=== PATIENT | female | born 1970 | race Caucasian/White ===

== ENCOUNTER → 2024-08-19 09:57 | Outpatient (REF) | payer OTHER, SELFPAY | LOC: HWRAD 09:57 | PROVIDERS: ATTENDING PHYSICIAN Nurse Practitioner Adult Health | DX: Z87.891 Personal history of nicotine dependence (principal) | CPT/HCPCS: 71271 ==

== ENCOUNTER → 2024-09-13 12:52 | Outpatient (REF) | payer OTHER, SELFPAY | LOC: HWRAD 12:52 | PROVIDERS: ATTENDING PHYSICIAN Nurse Practitioner Adult Health | DX: Z12.31 Encounter for screening mammogram for malignant neoplasm of breast (principal); R10.2 Pelvic and perineal pain | CPT/HCPCS: 76830; 76856; 77063; 77067 ==

== ENCOUNTER 2025-03-21 06:54 | Emergency (ER) | payer OTHER, SELFPAY ==
[2025-03-21 06:57] VITALS: BP 123/71
[2025-03-21 07:34] LABS: COVID-19 Antigen Negative (Negative)
[2025-03-21 07:45] VITALS: BP 117/67
[2025-03-21 07:46] VITALS: BMI 32.7
--- NOTE | 2025-03-21 07:53 | ED.GENMED ---
History of Present Illness
General
Chief Complaint: Cold/Flu/URI Symptoms
Time Seen by Provider: 03/21/25 07:37
History of Present Illness
History of Present Illness:
54-year-old female presents to the emergency department for evaluation of shortness of breath, fever, chills, and bodyaches ongoing for the past 2 days. Reports chest heaviness without overt chest pain. No nausea vomiting or diarrhea. No history
of underlying lung disease.
Past History
Past History
ED Past Medical History: Other (She does see a psychiatrist for unspecified problems)
ED Past Surgical History: Other (Laparoscopy, sinus surgery, tonsillectomy)
Social History
Tobacco: Non-smoker
Alcohol: None
Personal:
Living: with family
Employment: Not employed
Review of Systems
Review of Systems
Allergies reviewed?: Yes
All Other Systems: ROS reviewed and negative except as documented in HPI and ROS
Phy Exam
Physical Exam
Physical Exam:
GEN: Well appearing, NAD, WDWN
HEENT: Oral mucosa moist, no scleral icterus
Cardiac: Regular rate and rhythm,
Lung: Tachypneic and hypopneic, crackles best heard in the left upper field as well as bibasilar
MSK: No gross deformity or injuries
Skin: Good color, no pallor or jaundice, no rashes
Neuro: AO x3, moves all extremities freely
Psych: Calm, cooperative
Sepsis
Sepsis Screening
Sepsis Assessment: Sepsis Ruled Out
Sepsis Screen
Sepsis Screen: Sepsis Ruled Out
Date: 03/21/25
Time: 10:14
Course
Orders/Labs/Results
Orders:
Orders
03/21/25 07:06
COVID-19 Antigen Urgent
Source: Nasal Swab
INF RAPID [Influenza A+B Rapid Molecular] Urgent
SNEHA Source: Nasal Swab
Specimen Description:
03/21/25 07:52
CR Chest - 2 Views Urgent
Comment:
Reason For Exam: SOB/flu +
03/21/25 08:33
0.9% Sodium Chloride 1000 ml [Nss] 1,000 ml IV BOLUS
Ipratropium/Albuterol Sulfate [Duoneb] 3 ml INH R NOW STA
Oseltamivir Phosphate [Tamiflu] 75 mg PO NOW STA
03/21/25 08:34
Ketorolac [Toradol] 15 mg IV NOW STA
03/21/25 08:52
Complete Blood Count/With Diff Urgent
Comprehensive Metabolic Panel Urgent
03/21/25 09:26
Potassium Chloride [KCl] 40 meq PO NOW STA
Abnormal Lab Results
03/21/25
08:52
Absolute Neuts (auto) 6.8 H 10^3/uL
(1.4-6.5)
Absolute Lymphs (auto) 0.7 L 10^3/uL
(1.2-3.4)
Neutrophils % 84.5 H %
(42.2-75.2)
Lymphocytes % 8.8 L %
(20.5-51.1)
Potassium 3.0 L mmol/L
(3.5-5.1)
AST 69 H U/L
(14-36)
ALT 90 H U/L
(0-35)
Total Protein 5.6 L g/dl
(6.3-8.2)
Albumin 3.4 L g/dl
(3.5-5.0)
03/21/25 08:52
03/21/25 08:52
Vital Signs
Initial and Last Documented VS:
Initial Vital Signs
Temp Pulse Resp BP Pulse Ox
99.2 F 74 22 123/71 95
03/21/25 06:57 03/21/25 06:57 03/21/25 06:57 03/21/25 06:57 03/21/25 06:57
Last Documented Vital Signs
Temp Pulse Resp BP Pulse Ox
98.7 F 77 16 99/67 97
03/21/25 08:26 03/21/25 08:07 03/21/25 08:07 03/21/25 08:07 03/21/25 08:07
MDM/Problems Addressed
MDM/Problems Addressed:
Patient's work of breathing and crackles that improved with IV NSAIDs and nebulizer treatment. Will treat with antivirals given that she is within the 48-hour onset window. Chest x-ray is unrevealing of acute pathology and she is not hypoxic thus
she is suitable for outpatient management
*Pulse Oximetry
SaO2: 96
Oxygen Mode of Delivery: Room air
Patient hypoxic: no
*Critical Care Note
Total Time (30-74mins, 75-104mins- exclusive of procedures): Not Applicable
ED Attending Note
-
Portions of this chart may have been created with voice recognition software.� Occasional wrong word or��sound alike� substitutions may have occurred due to the inherent limitations of voice recognition software.
Discharge Plan
Departure
Patient Disposition: Home (Routine Discharge)
Date of Disposition: 03/21/25
Time of Disposition: 09:25
Patient with high blood pressure during this ER visit?: No
Discharge Problem:
Influenza A
Instructions: Flu in adults - ED (DC)
Prescriptions:
New
oseltamivir [Tamiflu] 75 mg capsule
75 mg PO BID Qty: 10 0RF
No Action
fluoxetine [Prozac] 10 mg Tablet
30 mg PO DAILY
dextroamphetamine-amphetamine [Adderall XR] 20 mg Capsule,Extended Release 24hr
20 mg PO DAILY
Referrals:
UNKNOWN - PT DOES,NOT KNOW [Family Provider]
Interventions
Interventions:
*General Assessment Last Done: 03/21/25 07:00
*Neglect/Abuse Screening Last Done: 03/21/25 07:00
*ED COVID-19 Vaccine History Last Done: 03/21/25 07:48
*ED Influenza Vaccine History Last Done: 03/21/25 07:48
[facility] Fall Risk Assessment Tool Last Done: 03/21/25 07:50
*Risk Screen - Suicide (C-SSRS) Last Done: 03/21/25 07:01
ED- Pulmonary Assessment Last Done: 03/21/25 07:49
Discharge Date and Time
Print Language: ETHIOPIAN
[2025-03-21 08:07] VITALS: BP 99/67
[2025-03-21] MEDS: TAMIFLU 75 MG PO (08:42)
[2025-03-21] MEDS: TORADOL 15 MG IV (08:43)
[2025-03-21] MEDS: NSS 1000 IV (08:45)
[2025-03-21] MEDS: DUONEB 3 ML INH (08:48)
[2025-03-21 08:59] LABS: Hematocrit 37.0 % (37.0-47.0); Hemoglobin 12.6 g/dL (12.0-16.0); Mean Corp Hgb Conc. 34.1 g/dL (33.0-37.0); Mean Corpuscular Volume 87.3 fL (81.0-99.0); Nucleated Red Blood Cells % 0 %; Platelet Count 245 10^3/uL (130-400); Red Cell Dist. Width 13.0 % (11.5-14.5)
[2025-03-21 09:13] LABS: ALT (SGPT) 90 U/L (0-35); AST (SGOT) 69 U/L (14-36); Albumin 3.4 g/dl (3.5-5.0); Alkaline Phosphatase 126 U/L (38-126); Blood Urea Nitrogen 7 mg/dl (7-17); Calcium 8.5 mg/dl (8.4-10.2); Carbon Dioxide 23 mmol/L (22-30); Chloride 104 mmol/L (98-107); Estimated Creatinine Clearance 99 ml/min; Glucose 84 mg/dl (70-99); Potassium 3.0 mmol/L (3.5-5.1); Sodium 135 mmol/L (135-145); Total Protein 5.6 g/dl (6.3-8.2); eGFR > 60.00
[2025-03-21] MEDS: KCL 40 MEQ PO (09:42)
== END 2025-03-21 10:00 | disposition home or self-care (01) ==
LOC: EMR 06:54
PROVIDERS: Emergency Medicine; Physician Assistant; EMERGENCY PHYSICIAN Emergency Medicine
DX: J10.1 Influenza due to other identified influenza virus with other respiratory manifestations (principal)
CPT/HCPCS: 99284; 96374; 96361; 94640; 71046; 80053; 85025; 87502; 87811

== ENCOUNTER 2025-03-24 19:17 | Inpatient (IN) | payer OTHER, SELFPAY ==
[2025-03-24 11:22] VITALS: BP 144/73
[2025-03-24 11:42] LABS: Hematocrit 36.5 % (37.0-47.0); Hemoglobin 12.5 g/dL (12.0-16.0); Mean Corp Hgb Conc. 34.2 g/dL (33.0-37.0); Mean Corpuscular Volume 84.1 fL (81.0-99.0); Nucleated Red Blood Cells % 0 %; Platelet Count 303 10^3/uL (130-400); Red Cell Dist. Width 12.7 % (11.5-14.5)
[2025-03-24 11:54] LABS: ALT (SGPT) 70 U/L (0-35); AST (SGOT) 56 U/L (14-36); Albumin 3.7 g/dl (3.5-5.0); Alkaline Phosphatase 138 U/L (38-126); Blood Urea Nitrogen 7 mg/dl (7-17); Calcium 8.5 mg/dl (8.4-10.2); Carbon Dioxide 26 mmol/L (22-30); Chloride 102 mmol/L (98-107); Glucose 99 mg/dl (70-99); Potassium 3.1 mmol/L (3.5-5.1); Sodium 135 mmol/L (135-145); Total Protein 6.2 g/dl (6.3-8.2); eGFR > 60.00
[2025-03-24 12:32] VITALS: BMI 31.8
--- NOTE | 2025-03-24 13:11 | ED.GENMED ---
History of Present Illness
General
Chief Complaint: Fainting/Passed Out
Time Seen by Provider: 03/24/25 12:39
History of Present Illness
History of Present Illness:
Patient is a 54-year-old woman who is otherwise healthy presenting to the emergency department after syncopal event. Per chart the patient was diagnosed with the flu 3 days ago. Today she was at her primary care doctor as she did not feel well.
They noted her oxygen was 93%. Upon ambulation her oxygen dropped to 89%. Patient felt lightheaded dizzy and then passed out. She slowly went to the ground. She did not hit her head. She is not on any blood thinners. She does note that she is
having tailbone pain after the fall. She also notes that she is having pleuritic chest pain and shortness of breath. She has been trying to stay hydrated though she has no appetite. No nausea vomiting. No diarrhea. She is on day 3 of Tamiflu.
Past History
Past History
ED Past Medical History: Other (She does see a psychiatrist for unspecified problems)
ED Past Surgical History: Other (Laparoscopy, sinus surgery, tonsillectomy)
Social History
Tobacco: Non-smoker
Alcohol: None
Personal:
Living: with family
Employment: Not employed
Phy Exam
Physical Exam
Physical Exam:
GENERAL: in no acute distress
HEENT: normocephalic, extraocular movements intact, dry oral mucosa
NECK: normal inspection
RESPIRATORY: no respiratory distress, crackles at the right lower base with intermittent wheezing
CARDIOVASCULAR: regular rate and rhythm
ABDOMEN/: soft, non-distended, non-tender to palpation, no rebound or guarding
EXTREMITIES: non-tender, no edema/swelling
NEUROLOGIC: awake and alert, moves all extremities
SKIN: warm
Course
Orders/Labs/Results
Orders:
Orders
03/24/25 11:30
Complete Blood Count/With Diff Urgent
Comprehensive Metabolic Panel Urgent
03/24/25 12:39
Electrocardiogram (*1) Urgent
Reason for Study: Shortness of Breath
EKG- Treatment ONCE
03/24/25 12:40
CR Chest - 2 Views Urgent
Comment:
Reason For Exam: cough
03/24/25 13:10
0.9% Sodium Chloride 1000 ml [Nss] 1,000 ml IV BOLUS
Ipratropium/Albuterol Sulfate [Duoneb] 3 ml INH R NOW ONE
03/24/25 13:11
Ketorolac [Toradol] 15 mg IV NOW STA
03/24/25 13:33
D-Dimer Urgent
03/24/25 14:44
CT Chest PE Study Urgent
Reason For Exam: positive dimer
03/24/25 15:06
Azithromycin 500 mg/250 ml [Zithromax Infusion] 500 mg in 250 ml IV NOW
CefTRIAXone [Rocephin] 2,000 mg IV NOW STA
Abnormal Lab Results
03/24/25 03/24/25
11:30 13:33
WBC 12.1 H 10^3/uL
(4.8-10.8)
Hct 36.5 L %
(37.0-47.0)
Abs Immat Gran (auto) 0.1 H 10^3/uL
(0-0.05)
Absolute Neuts (auto) 9.3 H 10^3/uL
(1.4-6.5)
Absolute Monos (auto) 0.9 H 10^3/uL
(0.1-0.6)
Neutrophils % 76.8 H %
(42.2-75.2)
Lymphocytes % 14.1 L %
(20.5-51.1)
D-Dimer 0.74 H ug/mlFEU
(0.00-0.50)
Potassium 3.1 L mmol/L
(3.5-5.1)
Creatinine 0.4 L mg/dL
(0.6-1.0)
AST 56 H U/L
(14-36)
ALT 70 H U/L
(0-35)
Alkaline Phosphatase 138 H U/L
(38-126)
Total Protein 6.2 L g/dl
(6.3-8.2)
03/24/25 11:30
03/24/25 11:30
Vital Signs
Initial and Last Documented VS:
Initial Vital Signs
Temp Pulse Resp BP Pulse Ox
99 F 91 20 144/73 92
03/24/25 11:22 03/24/25 11:22 03/24/25 11:22 03/24/25 11:22 03/24/25 11:22
Last Documented Vital Signs
Temp Pulse Resp BP Pulse Ox
99 F 79 14 144/73 94
03/24/25 11:22 03/24/25 12:45 03/24/25 12:37 03/24/25 11:22 03/24/25 13:14
MDM/Problems Addressed
Differential Diagnosis Includes:
Patient is a 54-year-old woman presenting to the emergency department after syncopal event in the setting of being flu positive. On arrival patient's oxygen saturation is 93 to 94%. Exam does show dry oral mucosa with crackles at the right lower
base with intermittent wheezing. Patient is a smoker but no diagnosis of COPD. Will give her nebulizer treatment. Will obtain chest x-ray to rule out superimposed pneumonia. Will give IV fluids and obtain EKG. Patient will need admission. Also
check a dimer given pleuritic pain and syncopal event with exertion and now SOB.
*Pulse Oximetry
SaO2: 94
Oxygen Mode of Delivery: Room air
Patient hypoxic: no
*Critical Care Note
Total Time (30-74mins, 75-104mins- exclusive of procedures): Not Applicable
Update Note
Update Note:
Chest x-ray per my interpretation consistent with pneumonia. Will give antibiotics. Dimer poisitve. CT PE negative. discussed with hospitalist who accepted patient to their service.
ED Attending Note
-
Portions of this chart may have been created with voice recognition software.� Occasional wrong word or��sound alike� substitutions may have occurred due to the inherent limitations of voice recognition software.
Discharge Plan
Departure
Patient Disposition: Admit
Date of Disposition: 03/24/25
Time of Disposition: 17:57
Presentation/result/management discussed w/ accepting MD/DO: Hospitalist
Discharge Problem:
Pneumonia
Prescriptions:
No Action
fluoxetine [Prozac] 10 mg Tablet
30 mg PO DAILY
dextroamphetamine-amphetamine [Adderall XR] 20 mg Capsule,Extended Release 24hr
20 mg PO DAILYPRN PRN (Reason: only on working days)
oseltamivir [Tamiflu] 75 mg capsule
75 mg PO BID Qty: 10 0RF
Rx Instructions:
for 5 days starting 03/21/25
acetaminophen [Tylenol] 325 mg Tablet
650 mg PO Q6HPRN PRN (Reason: mild pain)
ipratropium-albuterol [DuoNeb] 0.5 mg-3 mg(2.5 mg base)/3 mL Solution For Nebulization
3 ml INHALATION R Q6HPRN PRN (Reason: sob)
guaifenesin [Mucinex] 600 mg Tablet Extended Release 12hr
600 mg PO BIDPRN PRN (Reason: cough)
Referrals:
Mary Cornell CRNP [Family Provider, General]
Interventions
Interventions:
*General Assessment Last Done: 03/24/25 11:26
*Neglect/Abuse Screening Last Done: 03/24/25 11:26
*ED COVID-19 Vaccine History Last Done: 03/24/25 11:26
*ED Influenza Vaccine History Last Done: 03/24/25 11:26
[facility] Fall Risk Assessment Tool Last Done: 03/24/25 12:53
*Risk Screen - Suicide (C-SSRS) Last Done: 03/24/25 11:26
ED- Cardiac Assessment Last Done: 03/24/25 12:32
ED- Neurological Assessment Last Done: 03/24/25 12:32
Discharge Date and Time
Print Language: MEXICAN
[2025-03-24] MEDS: NSS 1000 IV ×2 (13:31→21:22)
[2025-03-24] MEDS: TORADOL 15 MG IV (13:32)
[2025-03-24] MEDS: DUONEB 3 ML INH (14:02)
[2025-03-24 14:33] LABS: D-Dimer 0.74 ug/mlFEU (0.00-0.50)
[2025-03-24] MEDS: ROCEPHIN 2000 MG IV (15:16)
[2025-03-24] MEDS: ZITHROMAX INFUSION 250 IV (15:16)
[2025-03-24 16:29] VITALS: BP 108/60
--- NOTE | 2025-03-24 18:08 | HPS.HSE ---
Family Physician
-
Family Physician: Mary Cornell
Chief Complaint
-
syncopal episode/hypoxia
History of Present Illness
Patient is a 54-year-old female with past medical history significant for depression/anxiety, ADHD and obstructive sleep apnea who presented to [facility] ED for evaluation of syncopal episode and hypoxia. Patient seen in ED on Thursday03/21/2025 and
tested positive for Flu A, patient was at primary care today for follow up and was found to be hypoxic on RA with exertion. During ambulation patient became hypoxic on RA to 89% and had syncopal episode where staff lowered patient to the floor. No
head strike and no injuries. Patient reports that she has continued with pleuritic chest pain, shortness of breath, productive cough, fevers, chills and bodyaches since Thursday03/19/2025. She has taken Tamiflu as prescribed twice a day since
ordered. She notes decreased PO intake and decreased appetite. Denies nausea, vomiting, constipation or diarrhea.
Medical History
Past Medical History
Past Medical History: Reports Other
Additional Past Medical History:
depression/anxiety
ADHD
obstructive sleep apnea
Past Surgical History: Reports Other
Additional Past Surgical History:
Nasal polypectomy
Laparoscopy-diagnostic
Tonsillectomy
Carpal tunnel release - right
Bilateral tubal ligation
MOHS removal ear/back
Social History
Tobacco: Smoker (last cigarette Thursday03/19/2025 when began feeling unwell)
Alcohol: Occasional (rare)
Drug: None
Personal:
Living: With Family
Employment: Employed
Family History
Family History: Other (Mother: DM Dad: COPD Brother: () melanoma )
Allergies / Home Medications
Allergies reflects when Allergies were last updated in [employer].
Home Medications with original date entered in [employer]
Allergy/Medication List:
Allergies
Allergy/AdvReac Type Severity Reaction Status Date / Time
No Known Allergies Allergy Verified 03/24/25 11:27
Home Medications
dextroamphetamine-amphetamine ER 20 mg 24hr capsule,extend release (Adderall XR) 20 mg PO DAILYPRN PRN only on working days 03/21/25
fluoxetine 10 mg tablet 30 mg PO DAILY Mental Health/Anxiety 03/21/25
oseltamivir 75 mg capsule (Tamiflu) 75 mg PO BID #10 caps 03/21/25
acetaminophen 325 mg tablet (Tylenol) 650 mg PO Q6HPRN PRN mild pain 03/24/25
guaifenesin 600 mg tablet, extended release 12 hr (Mucinex) 600 mg PO BIDPRN PRN cough 03/24/25
ipratropium 0.5 mg-albuterol 3 mg (2.5 mg base)/3 mL nebulization soln 3 ml inhalation R Q6HPRN PRN sob 03/24/25
Review of Systems
-
History Source: Patient
Constitutional: Reports Fever, Fatigue and Chills
EENT: Reports Runny Nose; Denies Sore Throat
Respiratory: Reports Cough and Trouble Breathing
Cardiac: Reports Chest Pain and Syncope; Denies Diaphoresis or Palpitations
Abdomen/GI: Reports Anorexia; Denies Abdominal Pain, Nausea, Vomiting or Diarrhea
: Denies Dysuria, Frequency or Urgency
Musculoskeletal: Denies Joint Pain
Skin: Denies Rash
Neurological: Reports Dizzy, Headache and Weakness
Physical Exam
Vital Signs
Vital Signs
Temp Pulse Resp BP Pulse Ox
99 F 79 14 144/73 94
03/24/25 11:22 03/24/25 12:45 03/24/25 12:37 03/24/25 11:22 03/24/25 13:14
Physical Exam
General: Well Developed, Well Nourished, Conversant and Obese
HEENT: NormoCephalic, PERRLA, Nose Appears Normal and Ears Appear Normal; No Moist mucous membranes
Respiratory: Wheezes, Non Labored Respirations and Decreased Breath Sounds
Cardiac: Regular Rhythm; No Murmur, Rub, Gallop or Peripheral Edema
GI: Soft, Non Tender, Non Distended and Normal Bowel Sounds
Musculoskeletal: No Clubbing, No Cyanosis and No Edema
Skin: Warm and IV/Catheter Site
Neuro: Awake and AO x 3
Psych: Calm
Laboratory Results
-
03/24/25 11:30
03/24/25 11:30
Laboratory Results
Total Bilirubin 0.5 mg/dl (0.2-1.3) 03/24/25 11:30
AST 56 U/L (14-36) H 03/24/25 11:30
ALT 70 U/L (0-35) H 03/24/25 11:30
Alkaline Phosphatase 138 U/L (38-126) H 03/24/25 11:30
Data Reviewed
-
Diagnostic Radiology: Report Reviewed by me (CXR: Multifocal bilateral pneumonia)
CT Scan: Report Reviewed by me (Chest: No CTA evidence for an acute pulmonary thromboembolism. Multifocal pneumonia. Mild mediastinal and bilateral hilar lymphadenopathy, favored to be reactive.)
Lab Data: Labs Reviewed by me (WBC 12.1, Neut 76.8, d-dimer 0.74, K+ 3.1, AST 56, ALT 70, Alk Phos 138)
Impression/Plan
-
IMPRESSION/PLAN:
#syncope and hypoxia 2/2 acute influenza infection and PNA
WBC 12.1, Neut 76.8, d-dimer 0.74, AST 56, ALT 70, Alk Phos 138
Covid: negative (03/21/2025)
Influenza: Influenza A positive (03/21/2025)
CXR: Multifocal bilateral pneumonia.
Chest Ct: No CTA evidence for an acute pulmonary thromboembolism.
Multifocal pneumonia.
Mild mediastinal and bilateral hilar lymphadenopathy, favored to be reactive.
- Admit to med/surg
- continue Tamiflu
- IV Ceftriaxone
- PO Azithromycin
- IVF NS 100cc/hr
- supportive care
#hypokalemia
K+ 3.1
- repleted in ED
- monitor BMP
#depression/anxiety
- continue fluoxetine
#ADHD
- continue Adderall out patient
#obstructive sleep apnea
does not use CPAP at home
Code status: full code
DVT prophylaxis: Lovenox sq
[2025-03-24] MEDS: KCL 40 MEQ PO (19:07)
--- NOTE | 2025-03-24 20:43 | W.PN.UPDATE ---
Update Note
Progress Note Update
Attending note
Patient seen independently
54-year-old woman with past medical history of:
depression/anxiety,
ADHD
obstructive sleep apnea
smoker
no flu shot this year
presented after syncopal episode and hypoxia. On Thursday03/21/2025 she tested positive for Flu A. Today was found to be hypoxic on RA with exertion. She had syncopal episode where medical staff lowered patient to the floor. No head strike and no
injuries. + pleuritic chest pain, shortness of breath, productive cough, fevers, chills and bodyaches since Thursday03/19/2025. She has taken Tamiflu as prescribed twice a day since ordered. Denies nausea, vomiting, constipation or diarrhea.
Past Medical History
depression/anxiety
ADHD
obstructive sleep apnea
Past Surgical History: Reports Other
Additional Past Surgical History:
Nasal polypectomy
Laparoscopy-diagnostic
Tonsillectomy
Carpal tunnel release - right
Bilateral tubal ligation
MOHS removal ear/back
Physical Exam
General: Well Developed, Well Nourished,
HEENT: NormoCephalic,
Respiratory: Wheezes,
Cardiac: Regular Rhythm; No Murmur, Rub,
GI: Soft, Non Tender,
Psych: Calm
IMPRESSION/PLAN:
1. syncope and hypoxia 2/2 acute influenza infection and PNA
CXR: Multifocal bilateral pneumonia.
Chest Ct: No CTA evidence for an acute pulmonary thromboembolism.
- continue Tamiflu
- IV Ceftriaxone
- PO Azithromycin
- IVF NS 100cc/hr
2. hypokalemia
- repleted in ED
- monitor BMP
Please see [facility] note for full details on
depression/anxiety
ADHD
obstructive sleep apnea
Code status: full code
DVT prophylaxis: Lovenox sq
--- NOTE | 2025-03-24 21:00 | PTCARENOTE ---
Received pt to 4W from ED. Pt walked from stretcher to bed without incident.
[2025-03-24 21:05] VITALS: BMI 29.5
[2025-03-24 21:06] VITALS: BP 133/77
[2025-03-24] MEDS: TAMIFLU 75 MG PO (21:25)
--- NOTE | 2025-03-24 21:59 | VATNOTE ---
MET WITH PT AND AT BEDSIDE ASSESSING IV SITES. PT AND RELATING PT ISSUES WITH LONG STANDING 'NEEDLE PHOBIA ' BEING EXTREMEMLY SEVERE. PT REFUSES TO HAVE PHS IN REMOVED. PT CURRENTLY CRYING AND SHAKING IN CHAIR WHEN DISCUSSING
THE POSSIBILITY OF ORDERED AM LAB DRAWSAND OTHER LABS THROUGHOUT HER HOSPITALIZATION. SUGGESTING THAT VAT DRAW HER AM LABS TO PROMOTE THE BEST POSSIBLE OUTCOME .PCN AT THE BEDSIDE WELL.
[2025-03-24] MEDS: ROBITUSSIN AC 5 ML PO (23:20)
[2025-03-24 23:26] VITALS: BP 113/83
--- NOTE | 2025-03-25 04:00 | PTCARENOTE ---
Upon arrival to unit, pt was adamant about not being a falls risk. When asked about her recent syncopal episode before coming into the ED, pt stated that personnel on either side of her guided her to the floor while testing her pulse ox, but that
she had not been light-headed or dizzy, and that she did not fall. Pt stated that she knows her limitations. Pt stated that she would ring for assistance. Pt has been ringing call tony appropriately all night to get unhooked from SCDs and navigate
IV pole to use the bathroom.
[2025-03-25] MEDS: XANAX 0.25 MG PO (05:18)
[2025-03-25 07:35] VITALS: BP 118/64
[2025-03-25] MEDS: PROZAC 30 MG PO (07:52)
[2025-03-25] MEDS: ZITHROMAX 500 MG PO (07:53)
[2025-03-25] MEDS: TAMIFLU 75 MG PO ×2 (07:53→19:22)
[2025-03-25] MEDS: NSS 1000 IV ×2 (07:54→18:15)
[2025-03-25] MEDS: TYLENOL 650 MG PO (08:01)
[2025-03-25] MEDS: ROBITUSSIN AC 5 ML PO ×2 (08:01→14:19)
[2025-03-25 09:52] LABS: Hematocrit 35.8 % (37.0-47.0); Hemoglobin 11.9 g/dL (12.0-16.0); Mean Corp Hgb Conc. 33.2 g/dL (33.0-37.0); Mean Corpuscular Volume 85.4 fL (81.0-99.0); Platelet Count 325 10^3/uL (130-400); Red Cell Dist. Width 12.7 % (11.5-14.5)
[2025-03-25] MEDS: DUONEB 3 ML INH ×2 (11:03→19:34)
[2025-03-25 11:43] LABS: Blood Urea Nitrogen 4 mg/dl (7-17); Calcium 8.5 mg/dl (8.4-10.2); Carbon Dioxide 24 mmol/L (22-30); Chloride 104 mmol/L (98-107); Estimated Creatinine Clearance 102 ml/min; Glucose 157 mg/dl (70-99); Potassium 3.0 mmol/L (3.5-5.1); Sodium 135 mmol/L (135-145); eGFR > 60.00
--- NOTE | 2025-03-25 12:07 | W.PN.HOSP.TC ---
Today's Communication/Plan
-
Continue with IV fluids
Replete potassium
Antibiotics for now
Bronchodilators for 24 hours
Monitor on telemetry
Assessment / Plan
Assessment / Plan
Gen: NAD, AAOx3.
Eyes: EOMI, no scleral icterus.
ENMT: OP clear of erythema/exudate, no thyromegaly.
Neck: supple.
CV: RRR, +S1/S2, no m/r/g.
Resp: Mild exp wheezing L>R
Abd: +BS, soft, NT, ND
Skin: No rashes.
Neuro: CN 2-12 intact, non-focal.
Psych: Normal mood and affect.
# Syncope likely secondary to influenza A and multifocal pneumonia versus dehydration versus hypoxia at outpatient setting
Covid: negative (03/21/2025)
Influenza: Influenza A positive (03/21/2025)
CXR: Multifocal bilateral pneumonia.
Chest Ct: No CTA evidence for an acute pulmonary thromboembolism.Multifocal pneumonia. Mild mediastinal and bilateral hilar lymphadenopathy, favored to be reactive.
Patient oxygen status has been stable without any significant drop and has not required oxygen
Patient will be continued on Tamiflu
Unclear if secondary bacterial infection. Check procalcitonin
Continue antibiotics in the interim
IV fluids for now.
Monitor on telemetry
No chest pain. Check baseline EKG
#hypokalemia
Replete and monitor
#depression/anxiety
- continue fluoxetine
#ADHD
- continue Adderall
#obstructive sleep apnea
does not use CPAP at home
#Mild transaminitis likely secondary to influenza
Continue to monitor
Code status: full code
DVT prophylaxis: Lovenox sq
Discussed with patient daughter at bedside in detail
Anticipated Discharge: 24 - 48 hours
Subjective/Interval History
-
Date of Service: March 25, 2025
states of sob
states nebulizer treatment helps
Objective Data
-
Labs:
Laboratory Results
03/25/25
08:38
WBC 12.1 H
Hgb 11.9 L
Hct 35.8 L
Plt Count 325
Sodium 135
Potassium 3.0 L
Chloride 104
Carbon Dioxide 24
BUN 4 L
Creatinine 0.5 L
Glucose 157 H
Calcium 8.5
Vital Signs:
Vital Signs
Temp Pulse Resp BP Pulse Ox
98.0 F 88 15 118/64 95
03/25/25 07:35 03/25/25 11:10 03/25/25 11:10 03/25/25 07:35 03/25/25 11:10
I&O
03/24/25 03/25/25 03/26/25
06:59 06:59 06:59
Intake Total 1480 / 1480
Balance 1480 / 1480
Data Reviewed
-
Total Time Spent with Patient (in minutes): 55
[2025-03-25] MEDS: KCL ELIXIR 40 MEQ PO (14:06)
[2025-03-25] MEDS: STERILE WATER FOR INJECTION 20 ML IV (14:06)
[2025-03-25] MEDS: ROCEPHIN 2000 MG IV (14:07)
[2025-03-25 14:44] VITALS: BP 125/66
[2025-03-25] MEDS: DUONEB INH (15:13)
[2025-03-25 23:17] VITALS: BP 110/62
[2025-03-26] MEDS: ROBITUSSIN AC 5 ML PO (00:03)
[2025-03-26] MEDS: XANAX 0.25 MG PO (04:29)
[2025-03-26] MEDS: DUONEB 3 ML INH (07:50)
[2025-03-26 07:54] VITALS: BP 121/64
[2025-03-26] MEDS: PROZAC 30 MG PO (08:38)
[2025-03-26] MEDS: KCL ELIXIR 40 MEQ PO (08:38)
[2025-03-26] MEDS: ZITHROMAX 500 MG PO (08:38)
--- NOTE | 2025-03-26 09:30 | PTCARENOTE ---
Patient c/o having a needle phobia. Patient was medicated with Xanax per her request before AM lab draw. Patient screamed and cried during lab draw. Power House Engineer was not able to collect enough blood. Patient refused and further lab draws. Patient's
states, 'She is too far gone. She will not agree to further lab testing and she wants to leave AMA.' Patients spouse is tearful and worried about her leaving, but requests physician be notified of patients decision to leave [facility]. Physician
made aware.
[2025-03-26 10:37] LABS: Hematocrit 34.5 % (37.0-47.0); Hemoglobin 12.0 g/dL (12.0-16.0); Mean Corp Hgb Conc. 34.8 g/dL (33.0-37.0); Mean Corpuscular Volume 82.9 fL (81.0-99.0); Nucleated Red Blood Cells % 0 %; Red Cell Dist. Width 12.5 % (11.5-14.5)
[2025-03-26] MEDS: DUONEB INH (11:06)
--- NOTE | 2025-03-26 12:11 | W.PN.HOSP.TC ---
Today's Communication/Plan
-
await labs-otherwise OP blood drawn due to severe anxiety related to blood draw
po abx
completed tamiflu
on room air
vss stable otherwise
Assessment / Plan
Assessment / Plan
Gen: NAD, AAOx3.
Eyes: EOMI, no scleral icterus.
ENMT: OP clear of erythema/exudate, no thyromegaly.
Neck: supple.
CV: RRR, +S1/S2, no m/r/g.
Resp:CTA bl
Abd: +BS, soft, NT, ND
Skin: No rashes.
Neuro: CN 2-12 intact, non-focal.
Psych: Normal mood and affect.
# Syncope likely secondary to influenza A and multifocal pneumonia versus dehydration versus hypoxia at outpatient setting
Covid: negative (03/21/2025)
Influenza: Influenza A positive (03/21/2025)
CXR: Multifocal bilateral pneumonia.
Chest Ct: No CTA evidence for an acute pulmonary thromboembolism.Multifocal pneumonia. Mild mediastinal and bilateral hilar lymphadenopathy, favored to be reactive.
Patient oxygen status has been stable without any significant drop and has not required oxygen
Patient will be continued on Tamiflu=last day today.
Unclear if secondary bacterial infection. Check procalcitonin -however patient with severe anxiety due to needles. Unclear if enough blood drawn.
Continue antibiotics in the interim
IV fluids for now.
Monitor on telemetry
No chest pain. EKG with NSR -no arrythmia noted. Remains stable on room air.
#hypokalemia
Replete and monitor
however patient with severe anxiety due to needles. Unclear if enough blood drawn.
Pt requesting to leave-can always get K drawn as outpatient if needed.
#depression/anxiety
- continue fluoxetine
#ADHD
- continue Adderall
#obstructive sleep apnea
does not use CPAP at home
#Mild transaminitis likely secondary to influenza
Continue to monitor
Code status: full code
DVT prophylaxis: Lovenox sq
More than 30 minutes spent in discharge including
Final examination of the patient
Summarizing hospital stay
Instructions for continuing care to all relevant caregivers
Preparation of discharge records, prescriptions, and referral forms
Total time spent (in minutes): 55
Anticipated Discharge: Today
Subjective/Interval History
-
Date of Service: March 26, 2025
states feeling better
on room air
denies sob
severe anxiety with blood draw
Objective Data
-
Labs:
Laboratory Results
03/26/25 03/26/25
10:20 11:04
WBC 14.4 H
Hgb 12.0
Hct 34.5 L
Plt Count
Sodium Cancelled Pending
Potassium Cancelled Pending
Chloride Cancelled Pending
Carbon Dioxide Cancelled Pending
BUN Cancelled Pending
Creatinine Cancelled Pending
Glucose Cancelled Pending
Calcium Cancelled Pending
Vital Signs:
Vital Signs
Temp Pulse Resp BP Pulse Ox
98.8 F 80 20 121/64 95
03/26/25 07:54 03/26/25 07:54 03/26/25 07:54 03/26/25 07:54 03/26/25 07:54
I&O
03/25/25 03/26/25 03/27/25
06:59 06:59 06:59
Intake Total 1480 / 1480 1080 / 1080
Balance 1480 / 1480 1080 / 1080
--- NOTE | 2025-03-26 12:14 | W.DCSUMMARY ---
Discharge Summary
Discharge Data
Date of Admission: 03/24/25
Date of Discharge: 03/26/25
-
Pending Results: No
Hospital Course
54-year-old female past medical history of NATHANAEL, ADHD, depression, presenting from PCP office. Presyncope and hypoxemia. Patient oxygen status was stable in the hospital. COVID was negative. Patient was positive for influenza A�She was already
taking Tamiflu as outpatient. Patient underwent CT chest which is negative for acute thromboembolism and mild lymphadenopathy which is favored to be reactive. Patient finished course of Tamiflu in the hospitalization. Patient was also on IV
antibiotics which was transitioned to p.o. antibiotics on discharge. Patient hypokalemia which was repleted. Repeat potassium level was ordered however patient with severe anxiety due to needles and was unable to tolerate repeat blood work.
Patient also with severe cough and said vomitus of his codeine was helping her as she is able to get 3 hours of sleep at a time but she was not able to do it at home. Patient was recommend to get repeat blood work done as outpatient and also chest
x-ray or CT chest for resolution of pneumonia.
Discharge Plan
-
Patient Disposition: Home (Routine Discharge)
Discharge Diagnosis/Procedures: Syncope likely secondary to influenza A and multifocal pneumonia versus dehydration versus hypoxia at outpatient setting
Hypokalemia
Mild transaminitis
Diet: As tolerated
Activity: As tolerated
Driving Restrictions: As prior to admission
Blood Work: CMP in 5-7 days via primary doctor.
Others Tests: Recommend repeat chest x-ray or CT chest in 4 to 6 weeks to assess resolution of pneumonia.
Activity Restrictions/Additional Instructions:
Follow-up respiratory culture results with primary doctor.
Referrals:
Mary Cornell CRNP [Family Provider, General] - in less than 1 week
Prescriptions:
New
codeine-guaifenesin 10-100 mg/5 mL Liquid
5 ml PO TIDPRN PRN (Reason: severe cough) Qty: 118 0RF
cefdinir 300 mg capsule
300 mg PO BID Qty: 6 0RF
azithromycin 500 mg tablet
500 mg PO DAILY 3 Days Qty: 3 0RF
Continued
fluoxetine 10 mg Tablet
30 mg PO DAILY
dextroamphetamine-amphetamine [Adderall XR] 20 mg Capsule,Extended Release 24hr
20 mg PO DAILYPRN PRN (Reason: only on working days)
acetaminophen [Tylenol] 325 mg Tablet
650 mg PO Q6HPRN PRN (Reason: mild pain)
ipratropium-albuterol 0.5 mg-3 mg(2.5 mg base)/3 mL Solution For Nebulization
3 ml INHALATION R Q6HPRN PRN (Reason: sob)
guaifenesin [Mucinex] 600 mg Tablet Extended Release 12hr
600 mg PO BIDPRN PRN (Reason: cough)
Discontinued
oseltamivir [Tamiflu] 75 mg capsule
75 mg PO BID Qty: 10 0RF
Rx Instructions:
for 5 days starting 03/21/25
Discharge Orders:
Discharge Patient (As Directed); Ordered 03/26/25
Ordered By: Mo Ennis
Discharge Date and Time
Print Language: CONGOLESE
--- NOTE | 2025-03-26 12:49 | CM ---
Chart reviewed and patient is for discharge today plan is to home no needs. Patient is independent with adl's and ambulation, no dme, drives
PCP: Mary Cornell
Pharmacy: [facility]
[2025-03-26 12:51] VITALS: BP 139/76
== END 2025-03-26 13:14 | disposition home or self-care (01) | DRG 195 ==
LOC: 4 WEST ACU 19:17
PROVIDERS: Emergency Medicine; Nurse Practitioner Family; ADMITTING PHYSICIAN Internal Medicine; ATTENDING PHYSICIAN Hospitalist; EMERGENCY PHYSICIAN Student in an Organized Health Care Education/Training Program; FAMILY PHYSICIAN Nurse Practitioner Adult Health
DX: J10.00 Influenza due to other identified influenza virus with unspecified type of pneumonia (principal); J10.1 Influenza due to other identified influenza virus with other respiratory manifestations; R55 Syncope and collapse; F41.9 Anxiety disorder, unspecified; F32.A Depression, unspecified; F90.9 Attention-deficit hyperactivity disorder, unspecified type; G47.33 Obstructive sleep apnea (adult) (pediatric); F17.200 Nicotine dependence, unspecified, uncomplicated; E87.6 Hypokalemia; R74.01 Elevation of levels of liver transaminase levels; R09.02 Hypoxemia; Z82.5 Family history of asthma and other chronic lower respiratory diseases; Z83.3 Family history of diabetes mellitus; Z80.8 Family history of malignant neoplasm of other organs or systems
CPT/HCPCS: 71046; 71275; 80048; 80053; 85025; 85027; 85379; 87070; 87071; 87186; 87205; 93005; 94640; 96361; 96365; 96375; 99285; Q9967

== ENCOUNTER → 2025-04-04 10:35 | Outpatient (REF) | payer OTHER, SELFPAY | LOC: HWRAD 10:35 | PROVIDERS: ATTENDING PHYSICIAN Nurse Practitioner Adult Health | DX: M53.3 Sacrococcygeal disorders, not elsewhere classified (principal) | CPT/HCPCS: 72220 ==